=== PATIENT | female | born 1980 | race African-American/Black ===

== ENCOUNTER 2017-10-02 13:17 | Emergency (ER) | payer BC, OTHER ==
[~2017-10-02] VITALS: Ht 167.6 cm; Wt 88.0 kg
[2017-10-02] MEDS ORDERED: ONDANSETRON HCL 4MG/2ML VIAL IV STA (14:32)
[2017-10-02] MEDS ORDERED: MORPHINE SULFATE 4 MG/ML CPJ (NOT FOR IM USE) IV STA (14:32)
[2017-10-02] MEDS ORDERED: SODIUM CHLORIDE 0.9% 1,000 ML IV ONE (14:32)
[2017-10-02 15:10] LABS: EOSINOPHILS % 3.9 % (0.0-5.0); HEMATOCRIT. 37.7 % (36.0-48.0); HEMOGLOBIN. 12.8 g/dL (12.0-16.0); LYMPHOCYTES % 14.8 % (20.0-50.0); MEAN CORPUSCULAR HEMOGLOBIN 28.5 pg (28.0-32.0); MEAN CORPUSCULAR VOLUME 83.9 fL (81.0-99.0); MEAN PLATELET VOLUME 7.8 fl (7.4-10.4); MONOCYTES % 4.2 % (2.0-8.0); NEUTROPHILS % 76.1 % (40.0-76.0); PLATELET 380 x1000/uL (130-400); RED BLOOD CELL COUNT 4.49 mill/uL (4.2-5.4)
[2017-10-02 15:26] LABS: CARBON DIOXIDE 26 mEq/L (21-32); CHLORIDE 106 mEq/L (98-107)
[2017-10-02] MEDS ORDERED: DIPHENHYDRAMINE 50MG/ML VIAL IV ONE (15:45)
[2017-10-02 16:08] LABS: CLARITY URINE TURBID (CLEAR); COLOR URINE YELLOW (YELLOW); GLUCOSE URINE NEGATIVE (NEGATIVE); KETONES URINE NEGATIVE (NEGATIVE); LEUKOCYTE ESTERASE URINE 3+ (NEGATIVE); NITRITE URINE NEGATIVE (NEGATIVE); OCCULT BLOOD URINE 3+ (NEGATIVE); PH URINE 7.5 (4.5-8.0); PROTEIN URINE 1+ (NEGATIVE); SPECIFIC GRAVITY URINE 1.016 (1.005-1.030)
[2017-10-02 16:20] VITALS: BP 163/89
[2017-10-02 16:38] LABS: *AMPHETAMINES SCREEN URINE NEGATIVE (NEGATIVE); *BARBITURATES SCREEN URINE NEGATIVE (NEGATIVE); *BENZODIAZEPINES SCREEN URINE NEGATIVE (NEGATIVE); *COCAINE SCREEN URINE NEGATIVE (NEGATIVE); CANNABINOID URINE SCREEN NEGATIVE (NEGATIVE); METHADONE URINE SCREEN NEGATIVE (NEGATIVE); OPIATES URINE SCREEN NEGATIVE (NEGATIVE); PHENCYCLIDINE URINE SCREEN NEGATIVE (NEGATIVE)
[2017-10-02] MEDS ORDERED: ONDANSETRON HCL 4MG/2ML VIAL IV ONE (17:30)
[2017-10-02] MEDS ORDERED: MORPHINE SULFATE 4 MG/ML CPJ (NOT FOR IM USE) IV ONE (17:30)
== END 2017-10-02 18:30 | disposition home or self-care (01) ==
LOC: ER 13:22
DX: N39.0 Urinary tract infection, site not specified (principal); E11.65 Type 2 diabetes mellitus with hyperglycemia; I10 Essential (primary) hypertension; Z79.4 Long term (current) use of insulin
CPT/HCPCS: 36415; 80053; 80305; 81001; 81025; 83690; 85025; 96361; 96374; 96375; 96376; 99285; J1200; J2270; J2405; Z7610; J7030

== ENCOUNTER 2017-11-20 11:29 | Emergency (ER) | payer BC ==
[~2017-11-20] VITALS: Ht 167.6 cm; Wt 98.0 kg
[2017-11-20] MEDS: METOCLOPRAMIDE HCL 10MG/2ML VIAL IV STA (20:10)
[2017-11-20] MEDS: SODIUM CHLORIDE 0.9% 1,000 ML IV ONE (20:10)
[2017-11-20] MEDS: MORPHINE SULFATE 4 MG/ML CPJ (NOT FOR IM USE) IV STA (20:10)
[2017-11-20 20:47] LABS: CLARITY URINE CLOUDY (CLEAR); COLOR URINE YELLOW (YELLOW); KETONES URINE 2+ (NEGATIVE); LEUKOCYTE ESTERASE URINE NEGATIVE (NEGATIVE); NITRITE URINE NEGATIVE (NEGATIVE); OCCULT BLOOD URINE NEGATIVE (NEGATIVE); PH URINE 6.5 (4.5-8.0); PROTEIN URINE 2+ (NEGATIVE); SPECIFIC GRAVITY URINE 1.028 (1.005-1.030); UROBILINOGEN URINE 0.2 E.U./dL (0.2-1.0)
[2017-11-20 21:09] LABS: *AMPHETAMINES SCREEN URINE NEGATIVE (NEGATIVE); *BARBITURATES SCREEN URINE NEGATIVE (NEGATIVE); *BENZODIAZEPINES SCREEN URINE NEGATIVE (NEGATIVE); *COCAINE SCREEN URINE NEGATIVE (NEGATIVE); CANNABINOID URINE SCREEN NEGATIVE (NEGATIVE); METHADONE URINE SCREEN NEGATIVE (NEGATIVE); OPIATES URINE SCREEN NEGATIVE (NEGATIVE); PHENCYCLIDINE URINE SCREEN NEGATIVE (NEGATIVE)
[2017-11-20 21:33] LABS: BASOPHILS % 0.3 % (0.0-2.0); HEMOGLOBIN. 14.5 g/dL (12.0-16.0); LYMPHOCYTES % 9.2 % (20.0-50.0); MEAN CORPUSCULAR HEMOGLOBIN 28.4 pg (28.0-32.0); MEAN CORPUSCULAR VOLUME 86.3 fL (81.0-99.0); MEAN PLATELET VOLUME 8.3 fl (7.4-10.4); MONOCYTES % 4.8 % (2.0-8.0); NEUTROPHILS % 83.7 % (40.0-76.0); PLATELET 455 x1000/uL (130-400); RED CELL DISTRIBUTION WIDTH 13.1 % (11.6-14.6)
[2017-11-20 21:37] LABS: PROTHROMBIN TIME 10.7 sec (9.4-11.6)
[2017-11-20 21:38] LABS: CHLORIDE 95 mEq/L (98-107)
[2017-11-20 21:39] LABS: HCG SCREEN NEGATIVE
[2017-11-20 21:43] LABS: CARBON DIOXIDE 24 mEq/L (21-32)
[2017-11-20] MEDS: MORPHINE SULFATE 4 MG/ML CPJ (NOT FOR IM USE) IV ONE (22:00)
[2017-11-20] MEDS: ONDANSETRON HCL 4MG/2ML VIAL IV ONE (22:00)
[2017-11-20] MEDS: CEFTRIAXONE 1 G PREMIX 50 ML IV ONE (22:15)
[2017-11-20] MEDS: MORPHINE SULFATE 2 MG/ML CPJ (NOT FOR IM USE) IV SCH (23:10)
[2017-11-21] MEDS: INSULIN LISPRO 100 UNITS/ML SUBCUT ONE (04:40)
[2017-11-21 05:47] VITALS: BP 135/76
[2017-11-21 06:04] LABS: CARBON DIOXIDE 26 mEq/L (21-32); CHLORIDE 96 mEq/L (98-107)
== END 2017-11-21 07:27 | disposition home or self-care (01) ==
LOC: ER 11:49
DX: R11.2 Nausea with vomiting, unspecified (principal); R10.84 Generalized abdominal pain; E11.9 Type 2 diabetes mellitus without complications; I10 Essential (primary) hypertension; Z88.8 Allergy status to other drugs, medicaments and biological substances
CPT/HCPCS: 36415; 71010; 74176; 80048; 80053; 80305; 81001; 82962; 83690; 84703; 85025; 85610; 93005; 96361; 96365; 96372; 96375; 96376; 99285; C1893; J0696; J1815; J2270; J2405; J2765; J7030

== ENCOUNTER 2018-08-22 08:52 | Inpatient (IN) | payer BC ==
[~2018-08-22] VITALS: Ht 167.6 cm; Wt 123.4 kg
[2018-08-22] MEDS ORDERED: TOPI50TA PO (09:01)
[2018-08-22] MEDS ORDERED: AMIT10TA6 PO (09:01)
[2018-08-22] MEDS ORDERED: INSU100I28 SQ (09:01)
[2018-08-22] MEDS ORDERED: FAMOTIDINE 20MG/2ML VIAL IV STA (09:17)
[2018-08-22] MEDS ORDERED: METOCLOPRAMIDE HCL 10MG/2ML VIAL IV STA (09:17)
[2018-08-22] MEDS ORDERED: SODIUM CHLORIDE 0.9% 1,000 ML IV ONE (09:17)
[2018-08-22 10:32] LABS: BASOPHILS % 1.3 % (0.0-2.0); EOSINOPHILS % 9.4 % (0.0-5.0); HEMATOCRIT. 36.3 % (36.0-48.0); HEMOGLOBIN. 12.3 g/dL (12.0-16.0); LYMPHOCYTES % 14.9 % (20.0-50.0); MEAN CORPUSCULAR HEMOGLOBIN 29.6 pg (28.0-32.0); MEAN CORPUSCULAR VOLUME 87.3 fL (81.0-99.0); MEAN PLATELET VOLUME 8.4 fl (7.4-10.4); MONOCYTES % 4.3 % (2.0-8.0); NEUTROPHILS % 70.1 % (40.0-76.0); PLATELET 373 x1000/uL (130-400); RED BLOOD CELL COUNT 4.16 mill/uL (4.2-5.4); RED CELL DISTRIBUTION WIDTH 13.2 % (11.6-14.6)
[2018-08-22 10:40] LABS: CHLORIDE 106 mEq/L (98-107); INR 0.9; PROTHROMBIN TIME 9.5 sec (9.1-11.1)
[2018-08-22 10:41] LABS: CLARITY URINE CLOUDY (CLEAR); COLOR URINE YELLOW (YELLOW); KETONES URINE 1+ (NEGATIVE); LEUKOCYTE ESTERASE URINE 1+ (NEGATIVE); NITRITE URINE POSITIVE (NEGATIVE); OCCULT BLOOD URINE NEGATIVE (NEGATIVE); PH URINE 6.5 (4.5-8.0); PROTEIN URINE TRACE (NEGATIVE)
[2018-08-22 10:50] LABS: B-HCG QUANTITATIVE 174 mIU/mL (<3)
[2018-08-22] MEDS ORDERED: CEFAZOLIN 1000MG PREMIX 50 ML IV NR (12:45)
[2018-08-22] MEDS ORDERED: ACETAMINOPHEN 325MG TABLET PO NR (12:45)
[2018-08-22] MEDS ORDERED: ONDANSETRON HCL 4MG/2ML INJ IV ONE (13:00)
[2018-08-22] MEDS ORDERED: ACETAMINOPHEN 650MG/20.3ML UDC GT PRN (16:15)
[2018-08-22] MEDS ORDERED: ACETAMINOPHEN 325MG TABLET PO PRN (16:15)
[2018-08-22] MEDS ORDERED: ACETAMINOPHEN 650MG SUPP PR PRN (16:15)
[2018-08-22] MEDS ORDERED: ONDANSETRON HCL 4MG/2ML INJ IV PRN (16:15)
[2018-08-22] MEDS ORDERED: DEXTROSE 50% WATER 50ML SYRINGE IV PRN (16:45)
[2018-08-22] MEDS: MORPHINE SULFATE 4 MG/ML CPJ (NOT FOR IM USE) IV PRN ×2 (16:56→23:18)
[2018-08-22] MEDS: CLONIDINE 0.1MG TABLET PO PRN ×3 (16:56→19:53)
[2018-08-22 20:29] LABS: *BENZODIAZEPINES SCREEN URINE NEGATIVE (NEGATIVE); METHADONE URINE SCREEN NEGATIVE (NEGATIVE); PHENCYCLIDINE URINE SCREEN NEGATIVE (NEGATIVE)
[2018-08-22 20:30] LABS: *AMPHETAMINES SCREEN URINE NEGATIVE (NEGATIVE); *BARBITURATES SCREEN URINE NEGATIVE (NEGATIVE); *COCAINE SCREEN URINE NEGATIVE (NEGATIVE); CANNABINOID URINE SCREEN NEGATIVE (NEGATIVE); OPIATES URINE SCREEN NEGATIVE (NEGATIVE)
[2018-08-23 02:16] LABS: CREATINE KINASE 87 IU/L (26-192); CREATINE KINASE MB FRACTION 1.7 ng/mL (0.5-3.6)
[2018-08-23 02:30] VITALS: BP 142/76
[2018-08-23] MEDS: MORPHINE SULFATE 4 MG/ML CPJ (NOT FOR IM USE) IV PRN ×5 (04:06→21:50)
[2018-08-23] MEDS: SODIUM CHLORIDE 0.45% 1,000 ML IV SCH ×2 (04:23→12:50)
[2018-08-23] MEDS: BLOOD SUGAR DIAGNOSTIC STRIP TEST SCH ×4 (06:25→21:00)
[2018-08-23 07:54] VITALS: BP 122/67
[2018-08-23] MEDS: INSULIN LISPRO 100 UNITS/ML SUBCUT SCH ×4 (08:44→21:57)
[2018-08-23 10:16] LABS: BASOPHILS % 2.3 % (0.0-2.0); EOSINOPHILS % 4.9 % (0.0-5.0); HEMATOCRIT. 36.6 % (36.0-48.0); HEMOGLOBIN. 12.4 g/dL (12.0-16.0); LYMPHOCYTES % 14.2 % (20.0-50.0); MEAN CORPUSCULAR HEMOGLOBIN 29.8 pg (28.0-32.0); MEAN PLATELET VOLUME 7.9 fl (7.4-10.4); MONOCYTES % 5.4 % (2.0-8.0); NEUTROPHILS % 73.2 % (40.0-76.0); PLATELET 370 x1000/uL (130-400); RED BLOOD CELL COUNT 4.15 mill/uL (4.2-5.4); RED CELL DISTRIBUTION WIDTH 13.3 % (11.6-14.6)
[2018-08-23 11:06] LABS: CHLORIDE 101 mEq/L (98-107)
[2018-08-23 11:12] LABS: PHOSPHORUS 2.8 mg/dL (2.5-4.9)
[2018-08-23 11:13] LABS: LDL CHOLESTEROL 121 mg/dL (5-100)
[2018-08-23 11:14] LABS: HDL CHOLESTEROL 50 mg/dL (40-59)
[2018-08-23 11:16] LABS: CREATINE KINASE 76 IU/L (26-192)
[2018-08-23 11:17] LABS: CREATINE KINASE MB FRACTION 1.5 ng/mL (0.5-3.6); T4 FREE 1.04 ng/dL (0.76-1.46)
[2018-08-23 11:56] VITALS: BP 106/56
[2018-08-23 16:04] VITALS: BP 121/66
[2018-08-23] MEDS ORDERED: CEFTRIAXONE 2 G in DEXTROSE 5% WATER 50 ML IV SCH (17:00)
[2018-08-23 20:00] VITALS: BP 110/72
[2018-08-24] VITALS: BP 108/58
[2018-08-24 04:00] VITALS: BP 115/66
[2018-08-24] MEDS: MORPHINE SULFATE 4 MG/ML CPJ (NOT FOR IM USE) IV PRN ×2 (04:30→12:06)
[2018-08-24] MEDS: SODIUM CHLORIDE 0.45% 1,000 ML IV SCH ×2 (05:31→12:08)
[2018-08-24] MEDS: BLOOD SUGAR DIAGNOSTIC STRIP TEST SCH ×2 (06:26→12:15)
[2018-08-24 07:58] LABS: CHLORIDE 102 mEq/L (98-107)
[2018-08-24 08:00] VITALS: BP 148/82
[2018-08-24 08:03] LABS: PHOSPHORUS 3.2 mg/dL (2.5-4.9)
[2018-08-24] MEDS: INSULIN LISPRO 100 UNITS/ML SUBCUT SCH ×2 (08:31→12:15)
[2018-08-24 11:46] VITALS: BP 134/66
[2018-08-24 12:06] VITALS: BP 134/66
[2018-08-24 13:16] LABS: BASOPHILS % 1.1 % (0.0-2.0); EOSINOPHILS % 8.5 % (0.0-5.0); HEMATOCRIT. 35.3 % (36.0-48.0); HEMOGLOBIN. 11.9 g/dL (12.0-16.0); LYMPHOCYTES % 20.5 % (20.0-50.0); MEAN CORPUSCULAR HEMOGLOBIN 29.3 pg (28.0-32.0); MEAN CORPUSCULAR VOLUME 87.1 fL (81.0-99.0); MEAN PLATELET VOLUME 7.6 fl (7.4-10.4); MONOCYTES % 6.8 % (2.0-8.0); NEUTROPHILS % 63.1 % (40.0-76.0); PLATELET 374 x1000/uL (130-400); RED BLOOD CELL COUNT 4.06 mill/uL (4.2-5.4); RED CELL DISTRIBUTION WIDTH 13.3 % (11.6-14.6)
[2018-08-24 13:46] LABS: HCG SCREEN POSITIVE
[2018-08-24] MEDS ORDERED: INSULIN GLARGINE UD 100 UNITS/ML SYR SUBCUT SCH (22:00)
== END 2018-08-24 16:15 | disposition home or self-care (01) | DRG 777 ==
LOC: ER 08:52 → CANRESERV 14:35 → ENRESERV 14:35 → EDBEDREQSVC 17:40 → ENRESERV 18:50 → 3WST 18:50 → EDBEDREQSVC 20:34 → ENRESERV 20:36 → EDBEDREQTM 23:29 → EDBEDREQSVC 23:29 → ENRESERV 23:42 → 6WST 08-23 02:30 → CANBEDREQ 08-23 07:16 → 6WST 08-23 07:55
PROVIDERS: ADMIT Internal Medicine; ATTEND Internal Medicine
DX: O00.201 Right ovarian pregnancy without intrauterine pregnancy (principal); K85.90 Acute pancreatitis without necrosis or infection, unspecified; O98.811 Other maternal infectious and parasitic diseases complicating pregnancy, first trimester; O23.01 Infections of kidney in pregnancy, first trimester; R65.10 Systemic inflammatory response syndrome (SIRS) of non-infectious origin without acute organ dysfunction; O16.1 Unspecified maternal hypertension, first trimester; E44.0 Moderate protein-calorie malnutrition; Z68.41 Body mass index [BMI] 40.0-44.9, adult; O26.891 Other specified pregnancy related conditions, first trimester; G43.A1 Cyclical vomiting, in migraine, intractable; O99.611 Diseases of the digestive system complicating pregnancy, first trimester; O24.414 Gestational diabetes mellitus in pregnancy, insulin controlled; O99.281 Endocrine, nutritional and metabolic diseases complicating pregnancy, first trimester; E78.5 Hyperlipidemia, unspecified; Z79.899 Other long term (current) drug therapy; Z79.4 Long term (current) use of insulin; Z88.1 Allergy status to other antibiotic agents; Z3A.01 Less than 8 weeks gestation of pregnancy; Z82.49 Family history of ischemic heart disease and other diseases of the circulatory system
CPT/HCPCS: 36415; 76705; 76770; 76801; 80048; 80053; 80061; 80305; 81003; 82550; 82553; 82962; 83036; 83605; 83690; 83735; 83880; 84100; 84145; 84439; 84443; 84481; 84484; 84702; 84703; 85025; 85610; 87040; 87077; 87086; 87186; 87210; 87491; 87591; 96361; 96365; 96375; 99285; C1893; J0690; J0696; J1815; J2270; J2405; J2765; J7030; J7060

== ENCOUNTER 2018-12-10 06:30 | Emergency (ER) | payer BC ==
[~2018-12-10] VITALS: Ht 172.7 cm; Wt 100.0 kg
[~2018-12-10 06:30] MED LIST: AMIT10TA6 PO; INSU100I28 SQ; TOPI50TA PO
[2018-12-10] MEDS ORDERED: SODIUM CHLORIDE 0.9% 1,000 ML IV ONE (07:35)
[2018-12-10] MEDS ORDERED: ONDANSETRON HCL 4MG/2ML INJ IV ONE (08:30)
[2018-12-10] MEDS ORDERED: MORPHINE SULFATE 4 MG/ML CPJ (NOT FOR IM USE) IV ONE (08:30)
[2018-12-10 09:08] LABS: CLARITY URINE CLOUDY (CLEAR); COLOR URINE YELLOW (YELLOW); KETONES URINE 2+ (NEGATIVE); LEUKOCYTE ESTERASE URINE NEGATIVE (NEGATIVE); NITRITE URINE NEGATIVE (NEGATIVE); OCCULT BLOOD URINE 1+ (NEGATIVE); PH URINE 5.5 (4.5-8.0); PROTEIN URINE 3+ (NEGATIVE); UROBILINOGEN URINE 0.2 E.U./dL (0.2-1.0)
[2018-12-10 09:09] LABS: BASOPHILS % 0.8 % (0.0-2.0); EOSINOPHILS % 1.1 % (0.0-5.0); HEMATOCRIT. 43.5 % (36.0-48.0); HEMOGLOBIN. 14.6 g/dL (12.0-16.0); LYMPHOCYTES % 9.3 % (20.0-50.0); MEAN CORPUSCULAR HEMOGLOBIN 29.3 pg (28.0-32.0); MEAN CORPUSCULAR VOLUME 86.9 fL (81.0-99.0); MEAN PLATELET VOLUME 8.6 fl (7.4-10.4); MONOCYTES % 3.4 % (2.0-8.0); NEUTROPHILS % 85.4 % (40.0-76.0); PLATELET 382 x1000/uL (130-400); RED CELL DISTRIBUTION WIDTH 12.6 % (11.6-14.6)
[2018-12-10 09:15] LABS: CHLORIDE 93 mEq/L (98-107)
[2018-12-10 09:19] LABS: PROTHROMBIN TIME 10.1 sec (9.1-11.1)
[2018-12-10 11:30] VITALS: BP 146/68
[2018-12-10] MEDS ORDERED: METOCLOPRAMIDE HCL 10MG/2ML VIAL IV ONE (12:45)
[2018-12-10] MEDS ORDERED: FENTANYL CITRATE/PF 50MCG/ML 2ML VIAL IV ONE (12:45)
[2018-12-10] MEDS ORDERED: KETOROLAC 15MG/ML VIAL IV ONE (12:45)
[2018-12-10] MEDS ORDERED: DIPHENHYDRAMINE 50MG/ML VIAL IV ONE (12:45)
== END 2018-12-10 14:45 | disposition home or self-care (01) ==
LOC: ER 06:30
DX: N39.0 Urinary tract infection, site not specified (principal); D72.829 Elevated white blood cell count, unspecified; E87.1 Hypo-osmolality and hyponatremia; R51 Headache; E11.21 Type 2 diabetes mellitus with diabetic nephropathy; E11.65 Type 2 diabetes mellitus with hyperglycemia; Z86.73 Personal history of transient ischemic attack (TIA), and cerebral infarction without residual deficits; Z88.1 Allergy status to other antibiotic agents; Z79.4 Long term (current) use of insulin
CPT/HCPCS: 36415; 71045; 74176; 80053; 81003; 81025; 83690; 85025; 85610; 93005; 96361; 96374; 96375; 99284; J1200; J1885; J2270; J2405; J2765; J3010; J7030

== ENCOUNTER 2019-02-18 13:51 | Emergency (ER) | payer BC, MEDICAID ==
[~2019-02-18] VITALS: Ht 167.6 cm; Wt 98.0 kg
[2019-02-18] MEDS ORDERED: SODIUM CHLORIDE 0.9% 1,000 ML IV ONE (14:35)
[2019-02-18] MEDS ORDERED: ONDANSETRON HCL 4MG/2ML INJ IV STA (14:35)
[2019-02-18] MEDS ORDERED: KETOROLAC 30MG/ML VIAL IV STA (14:35)
[2019-02-18] MEDS ORDERED: MORPHINE SULFATE 4 MG/ML CPJ (NOT FOR IM USE) IV ONE ×2 (15:30→16:45)
[2019-02-18 16:06] LABS: BASOPHILS % 0.6 % (0.0-2.0); EOSINOPHILS % 2.2 % (0.0-5.0); HEMATOCRIT. 39.6 % (36.0-48.0); HEMOGLOBIN. 13.4 g/dL (12.0-16.0); LYMPHOCYTES % 12.6 % (20.0-50.0); MEAN CORPUSCULAR HEMOGLOBIN 29.3 pg (28.0-32.0); MEAN CORPUSCULAR VOLUME 86.8 fL (81.0-99.0); MEAN PLATELET VOLUME 8.4 fl (7.4-10.4); MONOCYTES % 4.9 % (2.0-8.0); NEUTROPHILS % 79.7 % (40.0-76.0); PLATELET 401 x1000/uL (130-400); RED BLOOD CELL COUNT 4.56 mill/uL (4.2-5.4); RED CELL DISTRIBUTION WIDTH 12.2 % (11.6-14.6)
[2019-02-18 16:10] LABS: CHLORIDE 98 mEq/L (98-107)
[2019-02-18 16:17] LABS: BETA HYDROXYBUTYRATE 0.8 mMol/L (0.0-0.3)
[2019-02-18 16:25] LABS: CLARITY URINE CLEAR (CLEAR); COLOR URINE YELLOW (YELLOW); KETONES URINE 2+ (NEGATIVE); LEUKOCYTE ESTERASE URINE NEGATIVE (NEGATIVE); NITRITE URINE NEGATIVE (NEGATIVE); OCCULT BLOOD URINE TRACE (NEGATIVE); PROTEIN URINE 2+ (NEGATIVE); SPECIFIC GRAVITY URINE 1.042 (1.005-1.030); UROBILINOGEN URINE 0.2 E.U./dL (0.2-1.0)
[2019-02-18] MEDS ORDERED: INSULIN REGULAR (HUMULIN R) 300UNITS/3ML SUBCUT ONE (16:30)
[2019-02-18] MEDS ORDERED: ONDANSETRON HCL 4MG/2ML INJ IV ONE (16:45)
[2019-02-18] MEDS ORDERED: HYDROCODONE/ACETAMINOPHEN 10/325MG TABLET PO ONE (17:45)
[2019-02-18 18:31] VITALS: BP 174/108
== END 2019-02-18 19:11 | disposition home or self-care (01) ==
LOC: ER 13:51
DX: G43.A0 Cyclical vomiting, in migraine, not intractable (principal); G89.4 Chronic pain syndrome; M54.6 Pain in thoracic spine; E11.9 Type 2 diabetes mellitus without complications; R51 Headache; Z98.890 Other specified postprocedural states; Z79.899 Other long term (current) drug therapy; Z79.4 Long term (current) use of insulin; Z88.1 Allergy status to other antibiotic agents
CPT/HCPCS: 36415; 80053; 81003; 81025; 82010; 82962; 83690; 85025; 96361; 96372; 96374; 96375; 96376; 99283; J1815; J2270; J2405; J7030

== ENCOUNTER 2019-03-20 13:24 | Emergency (ER) | payer MEDICAID ==
[~2019-03-20] VITALS: Ht 167.6 cm; Wt 98.0 kg
[2019-03-20] MEDS ORDERED: ONDANSETRON HCL 4MG/2ML INJ IV STA (14:37)
[2019-03-20] MEDS ORDERED: MAGNESIUM/ALUMINUM HYDROXIDE/SIMETHICONE 30ML UDC PO STA (14:37)
[2019-03-20] MEDS ORDERED: SODIUM CHLORIDE 0.9% 1,000 ML IV ONE (14:37)
[2019-03-20] MEDS ORDERED: KETOROLAC 30MG/ML VIAL IV STA (14:37)
[2019-03-20] MEDS ORDERED: DIPHENHYDRAMINE 25MG CAPSULE PO ONE (14:45)
[2019-03-20 16:24] LABS: BASOPHILS % 0.8 % (0.0-2.0); EOSINOPHILS % 1.9 % (0.0-5.0); HEMATOCRIT. 36.1 % (36.0-48.0); LYMPHOCYTES % 12.3 % (20.0-50.0); MEAN CORPUSCULAR HEMOGLOBIN 28.9 pg (28.0-32.0); MEAN CORPUSCULAR VOLUME 86.7 fL (81.0-99.0); MEAN PLATELET VOLUME 8.2 fl (7.4-10.4); MONOCYTES % 4.4 % (2.0-8.0); NEUTROPHILS % 80.6 % (40.0-76.0); PLATELET 388 x1000/uL (130-400); RED BLOOD CELL COUNT 4.16 mill/uL (4.2-5.4); RED CELL DISTRIBUTION WIDTH 12.8 % (11.6-14.6)
[2019-03-20 16:30] LABS: CHLORIDE 105 mEq/L (98-107)
[2019-03-20 16:34] LABS: CLARITY URINE TURBID (CLEAR); COLOR URINE YELLOW (YELLOW); KETONES URINE 1+ (NEGATIVE); LEUKOCYTE ESTERASE URINE 1+ (NEGATIVE); NITRITE URINE NEGATIVE (NEGATIVE); OCCULT BLOOD URINE TRACE (NEGATIVE); PROTEIN URINE 2+ (NEGATIVE); SPECIFIC GRAVITY URINE 1.022 (1.005-1.030)
[2019-03-20] MEDS ORDERED: AMOXICILLIN 500 MG CAPSULE PO ONE (16:45)
[2019-03-20] MEDS ORDERED: MORPHINE SULFATE 4 MG/ML CPJ (NOT FOR IM USE) IV ONE (17:45)
[2019-03-20 18:28] VITALS: BP 180/65
== END 2019-03-20 18:30 | disposition home or self-care (01) ==
LOC: ER 13:24
DX: N30.00 Acute cystitis without hematuria (principal)
CPT/HCPCS: 36415; 74176; 80053; 81003; 81025; 83690; 85025; 96361; 96374; 96375; 99284; J1885; J2270; J2405; J7030; Q0163; Z7610

== ENCOUNTER 2019-05-25 19:04 | Inpatient (IN) | payer MEDICAID, MEDICARE ==
[~2019-05-25] VITALS: Ht 170.2 cm; Wt 100.7 kg
[2019-05-25] MEDS ORDERED: ONDANSETRON HCL 4MG/2ML INJ IV STA (20:52)
[2019-05-25] MEDS ORDERED: SODIUM CHLORIDE 0.9% 1,000 ML IV ONE (20:52)
[2019-05-25] MEDS ORDERED: FAMOTIDINE 20MG/2ML VIAL IV STA (20:52)
[2019-05-25] MEDS ORDERED: MORPHINE SULFATE 4 MG/ML CPJ (NOT FOR IM USE) IV STA (20:52)
[2019-05-25] MEDS ORDERED: MORPHINE SULFATE 4 MG/ML CPJ (NOT FOR IM USE) IV ONE (22:45)
[2019-05-25 23:32] LABS: BASOPHILS % 0.8 % (0.0-2.0); EOSINOPHILS % 2.3 % (0.0-5.0); HEMATOCRIT. 38.1 % (36.0-48.0); HEMOGLOBIN. 12.9 g/dL (12.0-16.0); LYMPHOCYTES % 15.5 % (20.0-50.0); MEAN CORPUSCULAR HEMOGLOBIN 29.6 pg (28.0-32.0); MEAN CORPUSCULAR VOLUME 87.4 fL (81.0-99.0); MEAN PLATELET VOLUME 8.5 fl (7.4-10.4); MONOCYTES % 5.3 % (2.0-8.0); NEUTROPHILS % 76.1 % (40.0-76.0); PLATELET 399 x1000/uL (130-400); RED BLOOD CELL COUNT 4.36 mill/uL (4.2-5.4); RED CELL DISTRIBUTION WIDTH 12.5 % (11.6-14.6)
[2019-05-25 23:42] LABS: CHLORIDE 100 mEq/L (98-107)
[2019-05-25 23:46] LABS: CLARITY URINE CLEAR (CLEAR); COLOR URINE YELLOW (YELLOW); KETONES URINE 1+ (NEGATIVE); LEUKOCYTE ESTERASE URINE NEGATIVE (NEGATIVE); NITRITE URINE NEGATIVE (NEGATIVE); OCCULT BLOOD URINE 2+ (NEGATIVE); PH URINE 7.5 (4.5-8.0); PROTEIN URINE 2+ (NEGATIVE); SPECIFIC GRAVITY URINE 1.029 (1.005-1.030)
[2019-05-25 23:49] LABS: ETHANOL BLOOD < 10 mg/dL
[2019-05-25 23:56] LABS: B-HCG QUANTITATIVE 4 mIU/mL (<3)
[2019-05-26 00:07] LABS: *AMPHETAMINES SCREEN URINE NEGATIVE (NEGATIVE); *BARBITURATES SCREEN URINE NEGATIVE (NEGATIVE); *BENZODIAZEPINES SCREEN URINE NEGATIVE (NEGATIVE); *COCAINE SCREEN URINE NEGATIVE (NEGATIVE); CANNABINOID URINE SCREEN NEGATIVE (NEGATIVE); METHADONE URINE SCREEN NEGATIVE (NEGATIVE); PHENCYCLIDINE URINE SCREEN NEGATIVE (NEGATIVE)
[2019-05-26 00:10] LABS: OPIATES URINE SCREEN PRESUMTIVE POSITIVE (NEGATIVE)
[2019-05-26 05:15] VITALS: BP 157/68
[2019-05-26 05:40] VITALS: BP 157/93
[2019-05-26] MEDS ORDERED: DEXTROSE 50% WATER 50ML SYRINGE IV PRN (08:30)
[2019-05-26] MEDS: MORPHINE SULFATE 2 MG/ML CPJ (NOT FOR IM USE) IV PRN ×4 (09:02→23:30)
[2019-05-26 09:51] LABS: HEMATOCRIT 38.7 % (36.0-48.0); HEMOGLOBIN 12.7 g/dL (12.0-16.0)
[2019-05-26 12:07] VITALS: BP 131/46
[2019-05-26] MEDS: BLOOD SUGAR DIAGNOSTIC STRIP TEST SCH ×3 (12:10→21:00)
[2019-05-26] MEDS ORDERED: MORPHINE SULFATE 2 MG/ML CPJ (NOT FOR IM USE) IV SCH (13:00)
[2019-05-26] MEDS: INSULIN LISPRO 100 UNITS/ML SUBCUT SCH ×3 (13:44→21:15)
[2019-05-26] MEDS: DIPHENHYDRAMINE 50MG/ML VIAL IV PRN ×2 (15:37→23:28)
[2019-05-26] MEDS: ONDANSETRON HCL 4MG/2ML INJ IV PRN (15:52)
[2019-05-26 16:27] VITALS: BP 140/88
[2019-05-26 20:00] VITALS: BP_SYST 130; BP_SYST 147; BP_DIAS 58; BP_DIAS 84
[2019-05-26] MEDS: INSULIN GLARGINE UD 100 UNITS/ML SYR SUBCUT SCH (21:15)
[2019-05-26] MEDS: SODIUM CHLORIDE 0.9% 1,000 ML IV SCH (23:46)
[2019-05-27] VITALS: BP 147/58
[2019-05-27 04:00] VITALS: BP 114/83
[2019-05-27] MEDS: MORPHINE SULFATE 2 MG/ML CPJ (NOT FOR IM USE) IV PRN ×5 (04:28→21:41)
[2019-05-27 05:53] LABS: BASOPHILS % 1.1 % (0.0-2.0); EOSINOPHILS % 5.8 % (0.0-5.0); HEMATOCRIT. 34.3 % (36.0-48.0); HEMOGLOBIN. 11.6 g/dL (12.0-16.0); MEAN CORPUSCULAR HEMOGLOBIN 29.7 pg (28.0-32.0); MEAN CORPUSCULAR VOLUME 88.1 fL (81.0-99.0); MEAN PLATELET VOLUME 8.4 fl (7.4-10.4); MONOCYTES % 4.9 % (2.0-8.0); NEUTROPHILS % 59.2 % (40.0-76.0); PLATELET 371 x1000/uL (130-400); RED CELL DISTRIBUTION WIDTH 12.5 % (11.6-14.6)
[2019-05-27] MEDS: BLOOD SUGAR DIAGNOSTIC STRIP TEST SCH ×4 (06:17→20:23)
[2019-05-27] MEDS: INSULIN LISPRO 100 UNITS/ML SUBCUT SCH ×4 (06:20→21:43)
[2019-05-27 07:17] LABS: CHLORIDE 101 mEq/L (98-107)
[2019-05-27 08:14] VITALS: BP 101/55
[2019-05-27] MEDS: DIPHENHYDRAMINE 50MG/ML VIAL IV PRN ×3 (08:35→20:23)
[2019-05-27] MEDS: INSULIN GLARGINE UD 100 UNITS/ML SYR SUBCUT SCH ×2 (10:00→21:42)
[2019-05-27 12:00] VITALS: BP 110/61
[2019-05-27] MEDS: SODIUM CHLORIDE 0.9% 1,000 ML IV SCH ×2 (12:00→20:40)
[2019-05-27 16:16] VITALS: BP 119/62
[2019-05-27 20:00] VITALS: BP 111/58
[2019-05-27] MEDS: ONDANSETRON HCL 4MG/2ML INJ IV PRN (21:39)
[2019-05-28] VITALS: BP 112/58
[2019-05-28] MEDS: MORPHINE SULFATE 2 MG/ML CPJ (NOT FOR IM USE) IV PRN ×3 (02:00→10:55)
[2019-05-28] MEDS: DIPHENHYDRAMINE 50MG/ML VIAL IV PRN ×2 (02:39→08:25)
[2019-05-28 04:00] VITALS: BP 125/56
[2019-05-28] MEDS: BLOOD SUGAR DIAGNOSTIC STRIP TEST SCH ×2 (05:53→12:14)
[2019-05-28] MEDS: INSULIN LISPRO 100 UNITS/ML SUBCUT SCH ×2 (05:59→12:50)
[2019-05-28 08:29] VITALS: BP 115/49
[2019-05-28] MEDS: SODIUM CHLORIDE 0.9% 1,000 ML IV SCH (09:39)
[2019-05-28] MEDS: INSULIN GLARGINE UD 100 UNITS/ML SYR SUBCUT SCH (10:56)
[2019-05-28 12:00] VITALS: BP 117/53
[2019-05-28 13:14] VITALS: BP 117/53
== END 2019-05-28 15:20 | disposition home or self-care (01) | DRG 54 ==
LOC: ER 19:28 → 8WST 05-26 01:20 → EDBEDREQTM 05-26 01:24 → EDBEDREQ 05-26 01:24 → EDBEDREQSVC 05-26 01:24 → ENRESERV 05-26 04:36
PROVIDERS: ADMIT Internal Medicine; ATTEND Internal Medicine
DX: G43.A0 Cyclical vomiting, in migraine, not intractable (principal); E11.65 Type 2 diabetes mellitus with hyperglycemia; D25.9 Leiomyoma of uterus, unspecified; R79.1 Abnormal coagulation profile; O02.9 Abnormal product of conception, unspecified; N93.9 Abnormal uterine and vaginal bleeding, unspecified; E11.9 Type 2 diabetes mellitus without complications; Z98.891 History of uterine scar from previous surgery
CPT/HCPCS: 36415; 74176; 76830; 76856; 80048; 80305; 80320; 82962; 83605; 84702; 85014; 85018; 86850; 86900; 93970; 96361; 96374; 96375; 96376; 99285; J1200; J1815; J2270; J2405; J3490; J7030; G0480

== ENCOUNTER 2019-06-09 14:07 | Emergency (ER) | payer MEDICARE ==
[~2019-06-09] VITALS: Ht 167.6 cm; Wt 91.0 kg
[2019-06-09] MEDS ORDERED: FAMOTIDINE 20MG/2ML VIAL IV STA (16:30)
[2019-06-09] MEDS ORDERED: SODIUM CHLORIDE 0.9% 1,000 ML IV ONE ×2 (16:30→19:35)
[2019-06-09] MEDS ORDERED: KETOROLAC 30MG/ML VIAL IV STA (16:30)
[2019-06-09] MEDS ORDERED: ONDANSETRON HCL 4MG/2ML INJ IV STA (16:30)
[2019-06-09 16:43] LABS: CLARITY URINE CLOUDY (CLEAR); COLOR URINE YELLOW (YELLOW); KETONES URINE 2+ (NEGATIVE); LEUKOCYTE ESTERASE URINE NEGATIVE (NEGATIVE); NITRITE URINE NEGATIVE (NEGATIVE); OCCULT BLOOD URINE TRACE (NEGATIVE); PH URINE 5.5 (4.5-8.0); PROTEIN URINE 3+ (NEGATIVE); SPECIFIC GRAVITY URINE 1.029 (1.005-1.030); UROBILINOGEN URINE 0.2 E.U./dL (0.2-1.0)
[2019-06-09 16:53] LABS: BASOPHILS % 1.2 % (0.0-2.0); EOSINOPHILS % 4.2 % (0.0-5.0); HEMATOCRIT. 38.7 % (36.0-48.0); HEMOGLOBIN. 13.3 g/dL (12.0-16.0); LYMPHOCYTES % 15.7 % (20.0-50.0); MEAN CORPUSCULAR VOLUME 87.1 fL (81.0-99.0); MEAN PLATELET VOLUME 7.9 fl (7.4-10.4); MONOCYTES % 5.3 % (2.0-8.0); NEUTROPHILS % 73.6 % (40.0-76.0); PLATELET 445 x1000/uL (130-400); RED BLOOD CELL COUNT 4.44 mill/uL (4.2-5.4); RED CELL DISTRIBUTION WIDTH 12.3 % (11.6-14.6)
[2019-06-09 16:56] LABS: CHLORIDE 101 mEq/L (98-107)
[2019-06-09] MEDS ORDERED: DIPHENHYDRAMINE 50MG/ML VIAL IV ONE ×2 (18:00→22:45)
[2019-06-09] MEDS ORDERED: MORPHINE SULFATE 4 MG/ML CPJ (NOT FOR IM USE) IV ONE ×2 (18:00→22:45)
[2019-06-09] MEDS ORDERED: ONDANSETRON HCL 4MG/2ML INJ IV ONE (18:00)
[2019-06-09] MEDS ORDERED: LORAZEPAM 2MG/ML CPJ IV ONE (19:00)
[2019-06-09] MEDS ORDERED: METOCLOPRAMIDE HCL 10MG/2ML VIAL IV ONE ×2 (19:45→22:45)
[2019-06-09 23:26] VITALS: BP 129/60
[2019-06-10 09:03] LABS: *AMPHETAMINES SCREEN URINE NEGATIVE (NEGATIVE)
[2019-06-10 09:04] LABS: *BARBITURATES SCREEN URINE NEGATIVE (NEGATIVE); *BENZODIAZEPINES SCREEN URINE NEGATIVE (NEGATIVE); *COCAINE SCREEN URINE NEGATIVE (NEGATIVE); METHADONE URINE SCREEN NEGATIVE (NEGATIVE); OPIATES URINE SCREEN NEGATIVE (NEGATIVE); PHENCYCLIDINE URINE SCREEN NEGATIVE (NEGATIVE)
[2019-06-10 09:05] LABS: CANNABINOID URINE SCREEN NEGATIVE (NEGATIVE)
== END 2019-06-10 00:33 | disposition home or self-care (01) ==
LOC: ER 14:07
DX: G43.A0 Cyclical vomiting, in migraine, not intractable (principal); R10.13 Epigastric pain; M54.9 Dorsalgia, unspecified; E11.9 Type 2 diabetes mellitus without complications; Z88.1 Allergy status to other antibiotic agents; Z79.4 Long term (current) use of insulin; Z79.899 Other long term (current) drug therapy; Z98.890 Other specified postprocedural states
CPT/HCPCS: 36415; 80053; 80305; 81003; 81025; 83690; 85025; 85610; 96361; 96374; 96375; 96376; 99283; J1200; J1885; J2060; J2270; J2405; J2765; J3490; J7030; Z7610

== ENCOUNTER 2019-07-18 09:03 | Emergency (ER) | payer MEDICARE ==
[~2019-07-18] VITALS: Ht 170.2 cm; Wt 90.0 kg
[2019-07-18] MEDS ORDERED: ONDANSETRON HCL 4MG/2ML INJ IV STA ×2 (10:06→12:59)
[2019-07-18] MEDS ORDERED: MAGNESIUM/ALUMINUM HYDROXIDE/SIMETHICONE 30ML UDC PO STA (10:06)
[2019-07-18] MEDS ORDERED: SODIUM CHLORIDE 0.9% 1,000 ML IV ONE (10:06)
[2019-07-18] MEDS ORDERED: DIPHENHYDRAMINE 25MG CAPSULE PO ONE (10:15)
[2019-07-18] MEDS: KETOROLAC 30MG/ML VIAL IV STA ×3 (10:46→11:35)
[2019-07-18 11:07] LABS: HEMOGLOBIN. 13.4 g/dL (12.0-16.0); MEAN CORPUSCULAR HEMOGLOBIN 28.7 pg (28.0-32.0); MEAN CORPUSCULAR VOLUME 86.2 fL (81.0-99.0); PLATELET 321 x1000/uL (130-400); RED BLOOD CELL COUNT 4.65 mill/uL (4.2-5.4); RED CELL DISTRIBUTION WIDTH 12.2 % (11.6-14.6)
[2019-07-18 11:16] LABS: CHLORIDE 99 mEq/L (98-107); INR 0.9; PROTHROMBIN TIME 9.3 sec (9.6-11.0)
[2019-07-18 11:25] LABS: HCG SCREEN NEGATIVE
[2019-07-18 11:43] LABS: CLARITY URINE CLOUDY (CLEAR); COLOR URINE ORANGE (YELLOW); KETONES URINE 1+ (NEGATIVE); LEUKOCYTE ESTERASE URINE NEGATIVE (NEGATIVE); NITRITE URINE NEGATIVE (NEGATIVE); OCCULT BLOOD URINE 3+ (NEGATIVE); PROTEIN URINE 2+ (NEGATIVE); SPECIFIC GRAVITY URINE 1.044 (1.005-1.030)
[2019-07-18 11:55] LABS: PLATELET ESTIMATE NORMAL
[2019-07-18 12:36] LABS: *AMPHETAMINES SCREEN URINE NEGATIVE (NEGATIVE); *BARBITURATES SCREEN URINE NEGATIVE (NEGATIVE); *BENZODIAZEPINES SCREEN URINE NEGATIVE (NEGATIVE); *COCAINE SCREEN URINE NEGATIVE (NEGATIVE); METHADONE URINE SCREEN NEGATIVE (NEGATIVE)
[2019-07-18 12:37] LABS: CANNABINOID URINE SCREEN NEGATIVE (NEGATIVE); PHENCYCLIDINE URINE SCREEN NEGATIVE (NEGATIVE)
[2019-07-18 12:43] LABS: OPIATES URINE SCREEN PRESUMTIVE POSITIVE (NEGATIVE)
[2019-07-18] MEDS ORDERED: MORPHINE SULFATE 4 MG/ML CPJ (NOT FOR IM USE) IV STA (12:59)
[2019-07-18] MEDS ORDERED: HYDROCODONE/ACETAMINOPHEN 5/325MG TABLET PO ONE (14:15)
[2019-07-18 14:48] VITALS: BP 137/76
== END 2019-07-18 15:31 | disposition left against medical advice (07) ==
LOC: ER 09:03
DX: R10.33 Periumbilical pain (principal); E11.65 Type 2 diabetes mellitus with hyperglycemia; Z98.890 Other specified postprocedural states; Z79.4 Long term (current) use of insulin; Z88.1 Allergy status to other antibiotic agents
CPT/HCPCS: 36415; 74176; 80053; 80305; 81003; 81025; 83690; 84703; 85025; 85610; 96361; 96374; 96375; 99284; J1885; J2405; J7030; Q0163

== ENCOUNTER 2019-10-16 10:45 | Emergency (ER) | payer MEDICARE ==
[~2019-10-16] VITALS: Ht 167.6 cm; Wt 86.0 kg
[2019-10-16 11:34] LABS: BASOPHILS % 0.5 % (0.0-2.0); EOSINOPHILS % 0.5 % (0.0-5.0); HEMATOCRIT. 38.7 % (36.0-48.0); HEMOGLOBIN. 13.4 g/dL (12.0-16.0); LYMPHOCYTES % 8.2 % (20.0-50.0); MEAN CORPUSCULAR HEMOGLOBIN 29.9 pg (28.0-32.0); MEAN CORPUSCULAR VOLUME 86.5 fL (81.0-99.0); MEAN PLATELET VOLUME 8.8 fl (7.4-10.4); MONOCYTES % 4.5 % (2.0-8.0); NEUTROPHILS % 86.3 % (40.0-76.0); PLATELET 525 x1000/uL (130-400); RED BLOOD CELL COUNT 4.47 mill/uL (4.2-5.4); RED CELL DISTRIBUTION WIDTH 13.3 % (11.6-14.6)
[2019-10-16 12:10] LABS: CHLORIDE 96 mEq/L (98-107)
[2019-10-16 12:57] LABS: B-HCG QUANTITATIVE 3254 mIU/mL (<3)
[2019-10-16] MEDS ORDERED: ACETAMINOPHEN 325MG TABLET PO NR (13:31)
[2019-10-16 13:41] LABS: CLARITY URINE CLEAR (CLEAR); COLOR URINE YELLOW (YELLOW); KETONES URINE 2+ (NEGATIVE); LEUKOCYTE ESTERASE URINE NEGATIVE (NEGATIVE); NITRITE URINE NEGATIVE (NEGATIVE); OCCULT BLOOD URINE 1+ (NEGATIVE); PH URINE 6.5 (4.5-8.0); PROTEIN URINE 3+ (NEGATIVE); SPECIFIC GRAVITY URINE 1.029 (1.005-1.030); UROBILINOGEN URINE 0.2 E.U./dL (0.2-1.0)
[2019-10-16] MEDS ORDERED: MORPHINE SULFATE 2 MG/ML CPJ (NOT FOR IM USE) IV ONE (13:45)
[2019-10-16] MEDS ORDERED: SODIUM CHLORIDE 0.9% 1,000 ML IV NR (13:45)
[2019-10-16] MEDS ORDERED: METOCLOPRAMIDE HCL 10MG/2ML VIAL IV ONE (13:45)
[2019-10-16] MEDS: ACETAMINOPHEN 325MG TABLET PO ONE ×2 (14:10→16:44)
[2019-10-16] MEDS ORDERED: MORPHINE SULFATE 10 MG/ML CPJ IM NR (15:15)
[2019-10-16 16:20] VITALS: BP 144/93
== END 2019-10-16 17:30 | disposition home or self-care (01) ==
LOC: ER 10:45
DX: O20.0 Threatened abortion (principal); O24.911 Unspecified diabetes mellitus in pregnancy, first trimester; O09.521 Supervision of elderly multigravida, first trimester; Z3A.01 Less than 8 weeks gestation of pregnancy
CPT/HCPCS: 36415; 76801; 76817; 80053; 81003; 81025; 84702; 85025; 86850; 86900; 86901; 96372; 99284; J2270; J2765

== ENCOUNTER 2019-10-27 08:54 | Emergency (ER) | payer MEDICARE ==
[~2019-10-27] VITALS: Ht 167.6 cm; Wt 96.0 kg
[2019-10-27 09:42] VITALS: BP 155/87
[2019-10-27 14:03] LABS: BASOPHILS % 0.9 % (0.0-2.0); EOSINOPHILS % 9.1 % (0.0-5.0); HEMOGLOBIN. 11.4 g/dL (12.0-16.0); LYMPHOCYTES % 20.4 % (20.0-50.0); MEAN CORPUSCULAR HEMOGLOBIN 29.6 pg (28.0-32.0); MEAN CORPUSCULAR VOLUME 88.4 fL (81.0-99.0); MONOCYTES % 6.7 % (2.0-8.0); NEUTROPHILS % 62.9 % (40.0-76.0); RED BLOOD CELL COUNT 3.85 mill/uL (4.2-5.4); RED CELL DISTRIBUTION WIDTH 13.4 % (11.6-14.6)
[2019-10-27 14:06] LABS: CHLORIDE 103 mEq/L (98-107)
[2019-10-27 14:19] LABS: B-HCG QUANTITATIVE 213 mIU/mL (<3)
[2019-10-27 14:31] LABS: PLATELET ESTIMATE NORMAL
[2019-10-27 14:33] LABS: MEAN PLATELET VOLUME 8.9 fl (7.4-10.4); PLATELET 309 x1000/uL (130-400)
== END 2019-10-27 15:10 | disposition home or self-care (01) ==
LOC: ER 08:54
DX: O02.1 Missed abortion (principal); D64.9 Anemia, unspecified; R73.9 Hyperglycemia, unspecified; E88.09 Other disorders of plasma-protein metabolism, not elsewhere classified; R03.0 Elevated blood-pressure reading, without diagnosis of hypertension
CPT/HCPCS: 36415; 76830; 76856; 84702; 86850; 86900; 99284

== ENCOUNTER 2019-11-17 12:24 | Emergency (ER) | payer MEDICARE ==
[~2019-11-17] VITALS: Ht 165.1 cm; Wt 82.0 kg
[2019-11-17] MEDS ORDERED: ONDANSETRON HCL 4MG/2ML INJ IV STA (19:30)
[2019-11-17] MEDS ORDERED: SODIUM CHLORIDE 0.9% 1,000 ML IV ONE (19:30)
[2019-11-17] MEDS ORDERED: MORPHINE SULFATE 4 MG/ML CPJ (NOT FOR IM USE) IV ONE (19:30)
[2019-11-17 20:29] LABS: CLARITY URINE CLOUDY (CLEAR); COLOR URINE DARK YELLOW (YELLOW); KETONES URINE 2+ (NEGATIVE); LEUKOCYTE ESTERASE URINE TRACE (NEGATIVE); NITRITE URINE NEGATIVE (NEGATIVE); OCCULT BLOOD URINE NEGATIVE (NEGATIVE); PH URINE 5.5 (4.5-8.0); PROTEIN URINE 3+ (NEGATIVE); SPECIFIC GRAVITY URINE 1.025 (1.005-1.030)
[2019-11-17 20:41] LABS: *AMPHETAMINES SCREEN URINE NEGATIVE (NEGATIVE); *BARBITURATES SCREEN URINE NEGATIVE (NEGATIVE); *BENZODIAZEPINES SCREEN URINE NEGATIVE (NEGATIVE); *COCAINE SCREEN URINE NEGATIVE (NEGATIVE); METHADONE URINE SCREEN NEGATIVE (NEGATIVE); OPIATES URINE SCREEN NEGATIVE (NEGATIVE); PHENCYCLIDINE URINE SCREEN NEGATIVE (NEGATIVE)
[2019-11-17 20:43] LABS: CANNABINOID URINE SCREEN PRESUMTIVE POSITIVE (NEGATIVE)
[2019-11-17] MEDS ORDERED: DIPHENHYDRAMINE 25MG CAPSULE PO ONE (20:45)
[2019-11-17] MEDS ORDERED: KETOROLAC 15MG/ML VIAL IV ONE (23:00)
[2019-11-17] MEDS ORDERED: HALOPERIDOL LACTATE 5MG/ML VIAL IM ONE (23:30)
[2019-11-17 23:49] LABS: CHLORIDE 98 mEq/L (98-107)
[2019-11-17 23:51] LABS: BASOPHILS % 0.9 % (0.0-2.0); EOSINOPHILS % 2.1 % (0.0-5.0); HEMOGLOBIN. 13.4 g/dL (12.0-16.0); LYMPHOCYTES % 24.3 % (20.0-50.0); MEAN CORPUSCULAR HEMOGLOBIN 29.6 pg (28.0-32.0); MEAN CORPUSCULAR VOLUME 86.4 fL (81.0-99.0); MEAN PLATELET VOLUME 8.5 fl (7.4-10.4); MONOCYTES % 6.6 % (2.0-8.0); NEUTROPHILS % 66.1 % (40.0-76.0); PLATELET 363 x1000/uL (130-400); RED BLOOD CELL COUNT 4.52 mill/uL (4.2-5.4); RED CELL DISTRIBUTION WIDTH 12.9 % (11.6-14.6)
[2019-11-18 00:44] VITALS: BP 136/72
[2019-11-21 07:10] LABS: CHLAMYDIA TRACHOMATIS NAA Negative (Negative); NEISSERIA GONORRHOEAE NAA Negative (Negative)
== END 2019-11-18 00:44 | disposition home or self-care (01) ==
LOC: ER 12:24
DX: R11.15 Cyclical vomiting syndrome unrelated to migraine (principal); R10.10 Upper abdominal pain, unspecified; N89.8 Other specified noninflammatory disorders of vagina; G43.909 Migraine, unspecified, not intractable, without status migrainosus; E11.9 Type 2 diabetes mellitus without complications; Z98.890 Other specified postprocedural states; Z88.1 Allergy status to other antibiotic agents; Z79.899 Other long term (current) drug therapy; Z79.4 Long term (current) use of insulin
CPT/HCPCS: 36415; 76830; 76856; 80053; 80305; 81003; 83690; 85025; 87210; 87491; 87591; 96361; 96372; 96374; 96375; 99284; C1893; J1630; J1885; J2270; J2405; J7030; Q0163; Z7610

== ENCOUNTER 2020-05-13 16:49 | Emergency (ER) | payer MEDICAID ==
[~2020-05-13] VITALS: Ht 167.6 cm; Wt 95.0 kg
[~2020-05-13 16:49] MED LIST changes: +CEPH-569 MT; +HYDR-3280 PO; +METO5TAB86 PO; +ONDA4TAB5 PO
[2020-05-13] MEDS ORDERED: KETOROLAC 30MG/ML VIAL IV STA (18:18)
[2020-05-13] MEDS ORDERED: ONDANSETRON HCL 4MG/2ML INJ IV STA ×2 (18:18→21:33)
[2020-05-13] MEDS ORDERED: SODIUM CHLORIDE 0.9% 1,000 ML IV ONE (18:18)
[2020-05-13 19:22] LABS: BASOPHILS % 0.2 % (0.0-2.0); EOSINOPHILS % 1.9 % (0.0-5.0); HEMATOCRIT. 43.7 % (36.0-48.0); HEMOGLOBIN. 15.1 g/dL (12.0-16.0); LYMPHOCYTES % 18.6 % (20.0-50.0); MEAN CORPUSCULAR HEMOGLOBIN 29.8 pg (28.0-32.0); MEAN CORPUSCULAR VOLUME 86.4 fL (81.0-99.0); MEAN PLATELET VOLUME 8.7 fl (7.4-10.4); MONOCYTES % 5.7 % (2.0-8.0); NEUTROPHILS % 73.6 % (40.0-76.0); PLATELET 378 x1000/uL (130-400); RED BLOOD CELL COUNT 5.06 mill/uL (4.2-5.4); RED CELL DISTRIBUTION WIDTH 12.3 % (11.6-14.6)
[2020-05-13 19:28] LABS: CHLORIDE 95 mEq/L (98-107)
[2020-05-13 19:31] LABS: INR 0.9
[2020-05-13 19:33] LABS: ETHANOL BLOOD < 10 mg/dL
[2020-05-13 20:11] LABS: CLARITY URINE CLEAR (CLEAR); COLOR URINE YELLOW (YELLOW); KETONES URINE 2+ (NEGATIVE); LEUKOCYTE ESTERASE URINE NEGATIVE (NEGATIVE); NITRITE URINE NEGATIVE (NEGATIVE); OCCULT BLOOD URINE NEGATIVE (NEGATIVE); PROTEIN URINE 3+ (NEGATIVE); SPECIFIC GRAVITY URINE 1.038 (1.005-1.030)
[2020-05-13] MEDS ORDERED: HYDROCODONE/ACETAMINOPHEN 5/325MG TABLET PO ONE (20:45)
[2020-05-13 20:46] LABS: *AMPHETAMINES SCREEN URINE NEGATIVE (NEGATIVE); *BARBITURATES SCREEN URINE NEGATIVE (NEGATIVE); *BENZODIAZEPINES SCREEN URINE NEGATIVE (NEGATIVE); *COCAINE SCREEN URINE NEGATIVE (NEGATIVE)
[2020-05-13 20:48] LABS: METHADONE URINE SCREEN NEGATIVE (NEGATIVE); OPIATES URINE SCREEN NEGATIVE (NEGATIVE); PHENCYCLIDINE URINE SCREEN NEGATIVE (NEGATIVE)
[2020-05-13 20:49] LABS: CANNABINOID URINE SCREEN NEGATIVE (NEGATIVE)
[2020-05-13 21:30] VITALS: BP 159/94
[2020-05-13] MEDS ORDERED: MORPHINE SULFATE 4 MG/ML CPJ (NOT FOR IM USE) IV STA (21:33)
== END 2020-05-13 22:30 | disposition home or self-care (01) ==
LOC: ER 16:49
DX: R10.0 Acute abdomen (principal); G89.29 Other chronic pain; M54.9 Dorsalgia, unspecified; R03.0 Elevated blood-pressure reading, without diagnosis of hypertension; E11.9 Type 2 diabetes mellitus without complications; Z79.4 Long term (current) use of insulin
CPT/HCPCS: 36415; 74176; 80053; 80305; 80320; 81003; 81025; 83690; 85025; 85610; 96374; 96375; 96376; 99284; J1885; J2270; J2405; J7030; G0480